=== PATIENT | female | born 1950 | race Caucasian/White ===

== ENCOUNTER → 2016-11-25 | Outpatient (CLI) | payer OTHER, BC | LOC: FIMAGING 09:31 | PROVIDERS: ATTEND Internal Medicine | DX: Z12.31 Encounter for screening mammogram for malignant neoplasm of breast (principal); Z80.3 Family history of malignant neoplasm of breast | CPT/HCPCS: G0202 ==

== ENCOUNTER → 2016-12-05 | Outpatient (CLI) | payer OTHER, BC | LOC: BMCIMAGING 09:57 | PROVIDERS: ATTEND Physician Assistant | DX: M17.0 Bilateral primary osteoarthritis of knee (principal) ==

== ENCOUNTER → 2017-01-03 | Outpatient (CLI) | payer OTHER, BC | LOC: FLAB 11:44 | PROVIDERS: ATTEND Physician Assistant Medical | DX: M41.9 Scoliosis, unspecified (principal) ==

== ENCOUNTER → 2017-07-18 | Outpatient (CLI) | payer OTHER, BC | LOC: BMCIMAGING 17:45 | PROVIDERS: ATTEND Emergency Medicine | DX: R68.84 Jaw pain (principal); W19.XXXA Unspecified fall, initial encounter ==

== ENCOUNTER → 2017-09-04 | Outpatient (CLI) | payer OTHER, BC | LOC: FIMAGING 14:01 | PROVIDERS: ATTEND Internal Medicine | DX: Z13.820 Encounter for screening for osteoporosis (principal); M85.89 Other specified disorders of bone density and structure, multiple sites; Z78.0 Asymptomatic menopausal state ==

== ENCOUNTER → 2017-12-04 | Outpatient (CLI) | payer OTHER, BC | LOC: FIMAGING 09:59 | PROVIDERS: ATTEND Internal Medicine | DX: Z12.31 Encounter for screening mammogram for malignant neoplasm of breast (principal); Z80.3 Family history of malignant neoplasm of breast ==

== ENCOUNTER → 2018-12-05 | Outpatient (CLI) | payer OTHER, BC | LOC: FIMAGING 10:30 ==